=== PATIENT | female | born 1960 | race Caucasian/White ===

== ENCOUNTER 2022-01-09 07:21 | Day surgery (SDC) | payer MEDICAID ==
[~2022-01-09] VITALS: Ht 167.6 cm; Wt 88.9 kg
[2022-01-09] MEDS ORDERED: MIDAZOLAM HCL 5 MG/5 ML VIAL ONE (09:23)
[2022-01-09] MEDS ORDERED: fentaNYL CITRATE/PF 100 MCG/2 ML AMP ONE (09:23)
[2022-01-09] MEDS ORDERED: DIPHENHYDRAMINE INJ 50 MG/ML VIAL ONE (09:38)
[2022-01-09 10:15] VITALS: BP_SYST 138
== END 2022-01-09 11:00 | disposition home or self-care (01) ==
LOC: SDS 07:21 → SMU 07:21 → SDS 11:00
PROVIDERS: ATTEND Internal Medicine
DX: R19.4 Change in bowel habit (principal); D12.3 Benign neoplasm of transverse colon; K29.50 Unspecified chronic gastritis without bleeding; E78.5 Hyperlipidemia, unspecified; K44.9 Diaphragmatic hernia without obstruction or gangrene; K64.8 Other hemorrhoids; Z79.82 Long term (current) use of aspirin; Z79.899 Other long term (current) drug therapy; Z20.822 Contact with and (suspected) exposure to COVID-19
CPT/HCPCS: 36415 ×2; 43239; 45380; 45385; 87081; 87426; 87635; 88305; 88312; 88313; 99152; 99153; G0378; J1200; J2250; J3010